=== PATIENT | female | born 1980 ===

== ENCOUNTER → 2020-03-02 | Outpatient (CLI) | payer OTHER | END | disposition home or self-care (01) | LOC: PRENATAL 15:30 | DX: O36.80X1 Pregnancy with inconclusive fetal viability, fetus 1 (principal); O09.511 Supervision of elderly primigravida, first trimester ==

== ENCOUNTER → 2020-04-28 | Outpatient (CLI) | payer OTHER | END | disposition home or self-care (01) | LOC: PRENATAL 15:30 | PROVIDERS: ATTEND Obstetrics & Gynecology Maternal & Fetal Medicine | DX: O35.3XX1 Maternal care for (suspected) damage to fetus from viral disease in mother, fetus 1 (principal); O98.512 Other viral diseases complicating pregnancy, second trimester; O35.0XX1 Maternal care for (suspected) central nervous system malformation in fetus, fetus 1; O09.512 Supervision of elderly primigravida, second trimester; Z36.89 Encounter for other specified antenatal screening; Z3A.20 20 weeks gestation of pregnancy ==